=== PATIENT | male | born 1945 | race Caucasian/White ===

== ENCOUNTER 2017-07-07 21:56 | Inpatient (IN) | payer MEDICARE ==
[~2017-07-07] VITALS: Ht 177.8 cm; Wt 89.8 kg
--- NOTE | 2017-07-07 22:00 | NUR ---
PT BIB FAMILY, PT PER FAMILY HAD 3 SYNCOPAL EPISODES TODAY PT DENIES PAIN AND INJURY. PT AAOX4. RESP EVEN AND NONE LABORED. SKIN PINK AND WARM. NO S/S OF ACUTE DISTRESS NOTED. VSS. -KO. PT GOWNED AND PLACED ON MONITOR AND POX. AWAITING MD SUMMERS.
--- NOTE | 2017-07-07 22:24 | NUR ---
PT TO CT
[2017-07-07] MEDS ORDERED: IV NS 0.9% 500 ML BAG IV ONE (22:30)
--- NOTE | 2017-07-07 22:33 | NUR ---
PT BACK FROM CT
[2017-07-07 22:46] LABS: BASOPHILS % (AUTO) 0.2 % (0.0-2.0); EOSINOPHILS # (AUTO) 0.1 /CMM (0.0-0.7); EOSINOPHILS % (AUTO) 0.9 % (0.0-6.0); HEMATOCRIT 44 % (39-51); HEMOGLOBIN 15.4 g/dL (13.5-17.5); LYMPHOCYTES # (AUTO) 5.1 /CMM (0.8-4.8); LYMPHOCYTES % (AUTO) 39.7 % (20.0-44.0); MEAN CORPUSCULAR HEMOGLOBIN 30 PG (26.0-33.0); MEAN CORPUSCULAR HGB CONC 35 g/dl (31.0-36.0); MEAN CORPUSCULAR VOLUME 87 fL (80-96); NEUTROPHILS # (AUTO) 6.6 /CMM (1.8-8.9); NEUTROPHILS % (AUTO) 51.2 % (43.0-81.0); PLATELET COUNT (AUTO) 334 /CMM (150-450); RED BLOOD CELL COUNT(AUTO) 5.09 MIL/uL (4.5-6.0); WHITE BLOOD COUNT (AUTO) 12.9 K/uL (4.3-11.0)
[2017-07-07 23:09] LABS: CALCIUM, SERUM 8.9 mg/dL (8.5-10.1); CARBON DIOXIDE 28 mmol/L (21-32); CHLORIDE 104 mmol/L (98-107); CREATININE 1.2 mg/dL (0.6-1.3); GLUCOSE 121 mg/dL (74-106); INR 0.95 (0.87-1.13); POTASSIUM 3.3 mmol/L (3.5-5.1); SODIUM SERUM 142 mmol/L (136-145); UREA NITROGEN, BLOOD 19 mg/dL (7-18)
[2017-07-07 23:10] LABS: TROPONIN I < 0.017 ng/mL (0.00-0.056)
[2017-07-07 23:17] LABS: ALANINE AMINOTRANSFERASE 31 U/L (12-78); ALBUMIN 3.9 g/dL (3.4-5.0); ALKALINE PHOSPHATASE 63 U/L (46-116); ASPARTATE AMINOTRANSFERASE 14 U/L (15-37); BILIRUBIN,DIRECT 0.1 mg/dL (0.0-0.2); BILIRUBIN,TOTAL 0.6 mg/dL (0.2-1.0); TOTAL PROTEIN, SERUM 6.7 g/dL (6.4-8.2)
--- NOTE | 2017-07-07 23:43 | NUR ---
report given to ms silvia hooker for hans.
--- NOTE | 2017-07-07 23:58 | NUR ---
Pt transfered to MD via acls protocol
[2017-07-08] VITALS (7 sets, daily range): BP systolic 91–132; BP diastolic 58–81
[2017-07-08] MEDS ORDERED: ACETAMINOPHEN 325 MG TABLET PO PRN
[2017-07-08] MEDS ORDERED: HYDROCODONE/APAP 5/325MG 1 EACH TABLET PO PRN
[2017-07-08] MEDS ORDERED: POTASSIUM CHLORIDE 20 MEQ TAB.PRT.SR PO ONE
[2017-07-08] MEDS ORDERED: MORPHINE SULFATE INJ 2 MG/ML DISP.SYRIN IV PRN
[2017-07-08] MEDS ORDERED: ONDANSETRON HCL/PF 4 MG/2 ML VIAL IVP PRN
--- NOTE | 2017-07-08 | NUR ---
RN NOTES RECEIVED PT. FROM ER WITH DX. OF SYNCOPE, A/OX4, SR ON TELE MONITOR, AT BEDSIDE, ADMISSION INSTRUCTION WAS GIVEN, CALL LIGHT WITHIN REACH, [id number], CONTINUE TO MONITOR
[2017-07-08] MEDS: IV NS 0.9% 1,000 ML IV PRN ×2 (00:50→10:58)
[2017-07-08] MEDS: ASPIRIN EC 81 MG TABLET.DR PO SCH ×2 (00:50→08:42)
[2017-07-08 06:34] LABS: BASOPHILS % (AUTO) 0.2 % (0.0-2.0); EOSINOPHILS % (AUTO) 0.4 % (0.0-6.0); HEMATOCRIT 40 % (39-51); HEMOGLOBIN 13.8 g/dL (13.5-17.5); LYMPHOCYTES # (AUTO) 1.4 /CMM (0.8-4.8); LYMPHOCYTES % (AUTO) 17.1 % (20.0-44.0); MEAN CORPUSCULAR HEMOGLOBIN 30 PG (26.0-33.0); MEAN CORPUSCULAR HGB CONC 34 g/dl (31.0-36.0); MEAN CORPUSCULAR VOLUME 88 fL (80-96); MONOCYTES # (AUTO) 0.4 /CMM (0.1-1.30); MONOCYTES % (AUTO) 5.3 % (2.0-12.0); NEUTROPHILS # (AUTO) 6.2 /CMM (1.8-8.9); PLATELET COUNT (AUTO) 262 /CMM (150-450); RDW COEFFICIENT OF VARIATION 13.3 (11.5-15.0); RED BLOOD CELL COUNT(AUTO) 4.58 MIL/uL (4.5-6.0)
--- NOTE | 2017-07-08 06:35 | NUR ---
TEXTED COURTNEY HADLEY FOR MRI APPROVAL.
--- NOTE | 2017-07-08 06:40 | NUR ---
RN NOTES SLEEPING BUT AROUSABLE, DENIES PAIN, NO SOB, AT BEDSIDE, CALL LIGHT WITHIN REACH, [id number], PT. NEEDS ATTENDED
[2017-07-08 06:44] LABS: ALBUMIN 3.4 g/dL (3.4-5.0); BILIRUBIN,TOTAL 0.5 mg/dL (0.2-1.0); CALCIUM, SERUM 8.6 mg/dL (8.5-10.1); CREATININE 1.3 mg/dL (0.6-1.3); MAGNESIUM 2.1 mg/dL (1.8-2.4); POTASSIUM 4.6 mmol/L (3.5-5.1); TOTAL PROTEIN, SERUM 5.9 g/dL (6.4-8.2)
[2017-07-08 06:53] LABS: THYROID STIMULATING HORMONE 1.883 uIU/mL (0.358-3.74)
[2017-07-08] MEDS ORDERED: LISI10TA5 PO (07:02)
[2017-07-08] MEDS ORDERED: ROSU10TA PO (07:02)
[2017-07-08] MEDS ORDERED: ALLO100T PO (07:02)
[2017-07-08] MEDS ORDERED: PANTOPRAZOLE 40 MG TABLET.DR PO SCH (07:30)
--- NOTE | 2017-07-08 07:36 | NUR ---
PLANNING DIVISION SUPERINTENDENT OPENING NOTE PATIENT IS ASLEEP AT THIS TIME. RESTING COMFORTABLY. NO FACIAL GRIMACING NOTED FOR PAIN. NO SOB OR DISTRESS NOTED. CALL LIGHT WITHIN REACH. SAFETY MEASURES IMPLEMENTED. MRI BRAIN WITHOUT CONTRAST TODAY. IV ON RIGHT HAND INTACT AND PATENT NO REDNESS OR SWELLING NOTED. IV FLUIDS RUNNING AT 70 TOLERATING WELL. AWAITING 2D ECHO. WILL CONTINUE TO MONITOR THROUGHOUT SHIFT
[2017-07-08] MEDS ORDERED: Medication Not On Formulary EA (Rosuvastatin Calcium (Crestor) 10 MG) PO SCH (09:00)
[2017-07-08] MEDS ORDERED: ALLOPURINOL 100 MG TABLET PO SCH (09:00)
[2017-07-08 14:35] LABS: APPEARANCE,URINE CLEAR (CLEAR); BILIRUBIN,URINE NEGATIVE (NEGATIVE); BLOOD, URINE NEGATIVE Ery/uL (NEGATIVE); COLOR,URINE YELLOW (YELLOW); KETONES,URINE NEGATIVE (NEGATIVE); LEUKOCYTE ESTERASE ,URINE NEGATIVE (NEGATIVE); NITRITE, URINE NEGATIVE (NEGATIVE); PH,URINE 6.5 (5.0-8.0); PROTEIN,URINE NEGATIVE (NEGATIVE); UGLUCOSE NEGATIVE (NEGATIVE); UROBILINOGEN,URINE 0.2 EU/dL (0.2)
--- NOTE | 2017-07-08 18:53 | NUR ---
PHOTOCOPIER TECHNICIAN NOTE PATIENT IS ALERT AND ORIENTED x4. NO PAIN AT THIS TIME. NO SOB OR DISTRESS NOTED. CALL LIGHT WITHIN REACH AT ALL TIMES. SAFETY MEASURES IMPLEMENTED. ABLE TO COMMUNICATE NEEDS. IV REMOVED, SKIN INTACT. ALL DUE MEDICATIONS GIVEN ORDERED. ALL NURSING CARE NEEDS ATTENDED TO. ALL DISCHARGE INSTRUCTIONS GIVEN TO PATIENT AND AT BEDSIDE, ALL MEDICATION TEACHING GIVEN TO PATIENT AND , RECEIVED TEACH BACK FOR BOTH. ALL BELONGINGS WITH PATIENT UPON DISCHARGE. LEFT VIA PRIVATE CAR WITH AND SON
[2017-07-08] MEDS ORDERED: ATORVASTATIN 10 MG TABLET PO SCH (22:00)
== END 2017-07-08 18:59 | disposition home or self-care (01) | DRG 73 ==
LOC: ER 22:00 → TELE 23:31
PROVIDERS: ADMIT Nurse Practitioner Acute Care; ATTEND Nurse Practitioner Acute Care
DX: G90.8 Other disorders of autonomic nervous system (principal); N17.0 Acute kidney failure with tubular necrosis; R65.10 Systemic inflammatory response syndrome (SIRS) of non-infectious origin without acute organ dysfunction; E86.0 Dehydration; E78.5 Hyperlipidemia, unspecified; E87.6 Hypokalemia; I10 Essential (primary) hypertension; G93.0 Cerebral cysts; Z88.0 Allergy status to penicillin; M10.9 Gout, unspecified
CPT/HCPCS: 36415; 70450-TC; 70551-TC; 71045-TC; 80048-TC; 80053-TC; 80061-TC; 80076-TC; 80305; 81000-TC; 82962-TC; 83735-TC; 83880; 84100-TC; 84443-TC; 84484-TC; 85025-TC; 85730-TC; 86850-TC; 87081-TC; 87086-TC; 93307-TC; A4606; J7030; J7040; Z7610